=== PATIENT | male | born 1975 | race Caucasian/White ===

== ENCOUNTER 2019-06-14 07:35 | Emergency (ER) | payer SELFPAY ==
[2019-06-14 07:36] VITALS: BP 149/93; PULSE 96; RESP 16; TEMP 36.2; O2SAT 97; BMI 36.6
--- NOTE | 2019-06-14 08:03 | ED.DCSUM_ITS ---
- ER Visit Summary Date of Service: 06/14/19 Chief Complaint: Acute on chronic bilateral ear pain and drainage History of Present Illness: The patient is a 43 M states I have had a ear infections my whole life. Patient states that he has pain draining from both ears. He said this is a chronic problem. Currently he is taking a prescription ear drop but he cannot remember what the name of that is. States is not making him any better. Denies any fever. No sore throat. No other complaints. He denies ever having any type of ear surgery. Physical Examination: Middle-aged male no acute distress. Vital signs are stable afebrile. HEENT exam bilateral otitis externa. There is a lot of fluid in his ear canal and I am unable to see the TMs. I do not see any obvious bladder perforation but it is limited TM exam. Posterior pharynx normal. No erythema or exudate. No trouble swallowing or breathing. Neck nontender no lymphadenopathy. Lungs are clear to auscultation. Heart regular rhythm no murmur. Abdomen soft and nontender. Otherwise exam unremarkable. Test Results: None Emergency Department Course and Treatment: Patient will be treated for both otitis externa and media. Placed on Corticosporin otic drops and amoxicillin for 10 days. Follow-up with his physician. Treatment Plan: Cortisporin otic drops 4 times a day to each ear. Amoxicillin 3 times daily for 10 days. Tylenol and Motrin for pain. Follow-up. Disposition: Discharge Impression: Acute bilateral otitis externa and media This note was generated with [employer] dictation software. It may contain incorrect words, spelling, and punctuation that were not noted in review of the chart prior to signing ED Disposition - Plan for ED Patient: Referrals: Bryan Hampton MD [Primary Care Provider] -
--- NOTE | 2019-06-14 08:06 | DCINST.ED_ITS ---
ED Disposition - Plan for ED Patient: Disposition: Home or Assisted Living Instructions: OTITIS MEDIA, Abx Tx (Adult), EXTERNAL EAR INFECTION (Adult) Prescriptions: Amoxicillin 500 mg PO Q8 #30 tab Prescription Printed Neomyc/Colist/Hydrocort/Thonzn [Cortisporin-Tc Ear Suspension] 10 ml OT 4X/DAY 10 Days #2 drops.susp Prescription Printed Referrals: Bryan Hampton MD [Primary Care Provider] - 3-5 Days if not improving Additional Instructions: Drops to each ear 4 times a day. Amoxicillin 1 pill 3 times a day for the next 10 days. Tylenol Motrin for pain. Follow-up with your doctor if not improving or follow-up with an field research associate.
[2019-06-14] MEDS: AMOXICILLIN 500 MG CAPSULE PO (08:30)
[2019-06-14 09:08] VITALS: BP 145/86; PULSE 82; RESP 16; O2SAT 96
== END 2019-06-14 09:11 | disposition home or self-care (01) ==
LOC: ED 08:49
PROVIDERS: Emergency Provider Emergency Medicine; Family Provider Family Medicine; PCP Family Medicine
DX: H60.503 Unspecified acute noninfective otitis externa, bilateral (principal); H66.93 Otitis media, unspecified, bilateral; Z72.0 Tobacco use
CPT/HCPCS: 99283

== ENCOUNTER → 2022-07-17 | Outpatient (CLI) | payer MEDICAID, SELFPAY | END | disposition home or self-care (01) | LOC: SL 22:34 | PROVIDERS: PCP Internal Medicine; Referring Provider Otolaryngology Otolaryngology/Facial Plastic Surgery; Visit Provider Otolaryngology Otolaryngology/Facial Plastic Surgery | DX: G47.33 Obstructive sleep apnea (adult) (pediatric) (principal) | CPT/HCPCS: 95811 ==

== ENCOUNTER → 2022-08-09 | Outpatient (CLI) | payer MEDICAID, SELFPAY | END | disposition home or self-care (01) | LOC: SL 12:04 | PROVIDERS: PCP Internal Medicine; Visit Provider Nurse Practitioner Acute Care | DX: Z46.89 Encounter for fitting and adjustment of other specified devices (principal) ==

== ENCOUNTER 2022-08-20 01:21 | Emergency (ER) | payer MEDICAID, SELFPAY ==
[2022-08-20 01:22] VITALS: BP 164/103; PULSE 72; RESP 20; TEMP 36.4; O2SAT 97; BMI 46.3
[2022-08-20 01:25] VITALS: BP 164/103; PULSE 72; RESP 20; TEMP 36.4; O2SAT 97
[2022-08-20] MEDS: Lidocaine 2% /Epi 1:100 (20ml) 20 ML VIAL INFILT (02:00)
[2022-08-20] MEDS: Clindamycin HCl 150 MG Capsule 300 MG PO (02:00)
[2022-08-20] MEDS: Bupivacaine Mpf 0.5% 30 ML VIAL INFILT (02:02)
--- NOTE | 2022-08-20 02:12 | EDS_ITS ---
HPI History of Present Illness Chief Complaint: Dental Narrative Narrative: Patient is a 46-year-old male with history of MINOO and obesity. He states he has bad teeth. He reports that over the past few days he has been having increasing pain to the left upper jaw. He denies any trouble breathing or swallowing he denies any trauma. He denies any fevers or chills but states that the pain has been slowly increasing and he is concerned for infection and therefore comes in for evaluation. PFSH PFSH Home Medications clindamycin HCl 300 mg capsule (Cleocin HCl) 300 mg PO 4X/DAY 10 days #40 caps 08/20/22 [Rx Last Taken Unknown] oxycodone-acetaminophen 5 mg-325 mg tablet (Percocet) 1 tab PO Q6H PRN pain 3 days #12 tabs 08/20/22 [Rx Last Taken Unknown] Allergy/AdvReac Type Severity Reaction Status Date / Time No Known Allergies Allergy Verified 08/20/22 01:26 Social History Smoking Status: Current every day smoker tobacco type: cigarettes ROS ROS ED Constitutional Constitutional ED: Denies chills or fever(s) ENT ENT ED: Reports other Details: Positive dental pain ; Denies sore throat Cardiovascular Cardiovascular: Denies chest pain Respiratory/Chest Respiratory/Chest: Denies cough or dyspnea Gastrointestinal Gastrointestinal: Denies abdominal pain, diarrhea, nausea or vomiting Genitourinary Genitourinary ED: Denies dysuria Musculoskeletal Musculoskeletal: Denies myalgias Integumentary Denies rash Neurologic Neurologic: Denies headache(s) Hematologic/Lymphatic Hematologic/Lymphatic: Denies easy bleeding or easy bruising EXAM Physical Exam Const Vital Signs: 08/20/22 01:22 08/20/22 01:25 Temperature 97.6 F L 97.6 F L Temperature Source Temporal Temporal Pulse Rate 72 72 Respiratory Rate 20 H 20 H Blood Pressure 164/103 H 164/103 H Blood Pressure Mean 123 123 Pulse Ox 97 97 Oxygen Delivery Method Room Air Room Air Positive well nourished, well developed and obese General Appearance ED: well developed Nutritional Appearance: obese HEENT Reports moist mucous membranes HEENT Narrative: Dental caries noted. There is mild soft tissue swelling to the left aspect of the hard palate consistent with an early developing abscess. No tongue or lip swelling no airway edema or compromise. Eyes PERRL and EOMs intact bilaterally Neck supple Neck Narrative: Positive anterior cervical lymphadenopathy noted No brawny edema in the submental space to suggest Angel's angina Resp normal respiratory effort and clear to auscultation bilaterally Cardio regular rate and regular rhythm Extremity normal to inspection Neuro oriented x3 and CN's II-XII intact bilaterally Sensorium / Orientation: alert Psych mental status grossly normal Skin no rashes or lesions noted MDM MDM MDM Narrative Medical decision making narrative: Patient presented to the ER hypertensive but with his pain this is to be expected. Otherwise he is afebrile. He has no signs of respiratory distress and no physical exam findings to suggest systemic infection or Angel's angina. Therefore I felt no need for imaging or laboratory studies. The patient was given a dental block as documented below and then a incision to the small area of fluctuance on the roof of his mouth was performed as well. With physical exam indicating dental infection/abscess he will be placed on antibiotics and pain medication but as he has no signs of systemic infection respiratory distress or Angel's angina is otherwise safe for discharge. Patient was given a left superior alveolar dental block using 1.5 mL of 0.5% Marcaine and 1.5 mL of 2% lidocaine with epinephrine. Patient achieved good anesthesia with the injection and tolerated the procedure well without complication. Following anesthesia #11 blade was used to make 1/2 cm incision to the small area of fluctuance to the left hard palate. There was minimal ooze of apparent material and blood expressed. Patient tolerated these procedures well without complication. Discharge Plan Triage Chief Complaint: Dental ED Provider: Morro Mariano Dx/Rx/DC Orders Clinical Impression: Dental abscess, Pain due to dental caries Instructions: Dental Abscess, ED Dental Pain Prescriptions: New oxycodone-acetaminophen [Percocet] 5-325 mg tablet 1 tab PO Q6H PRN (Reason: pain) 3 Days Qty: 12 0RF clindamycin HCl [Cleocin HCl] 300 mg capsule 300 mg PO 4X/DAY 10 Days Qty: 40 0RF Stand Alone Forms: ED Work / School Excuse Primary Care Provider: Care Physician,No Primary Referrals: Care Physician,No Primary [Primary Care Provider] - Activity Restrictions/Additional Instructions: Please follow-up with your dentist for definitive treatment of your symptoms but take the antibiotics as directed as I feel your increased pain is related to dental abscess/infection. If he have any difficulty breathing or swallowing or any further concerns please return to the ER for repeat evaluation Disposition Disposition: Home, Self Care
== END 2022-08-20 02:48 | disposition home or self-care (01) ==
PROVIDERS: Emergency Provider Emergency Medicine; Visit Provider Emergency Medicine
DX: K04.7 Periapical abscess without sinus (principal); F17.210 Nicotine dependence, cigarettes, uncomplicated; K02.9 Dental caries, unspecified; E66.9 Obesity, unspecified; G47.30 Sleep apnea, unspecified
CPT/HCPCS: 42000; 41800; 64999; 99283